=== PATIENT | female | born 1990 | race Caucasian/White ===

== ENCOUNTER 2016-08-06 15:00 | Emergency (ER) | payer SELFPAY ==
[~2016-08-06] VITALS: Ht 170.2 cm; Wt 54.4 kg
--- NOTE | 2016-08-06 15:07 | NUR ---
CALLED RT FOR BREATHING TREATMENT
[2016-08-06] MEDS ORDERED: Magnesium 1GM/D5W 100ML PREMIX 200 ML IV ONE (15:09)
[2016-08-06] MEDS ORDERED: ALBUTEROL FS 2.5 MG/3 ML VIAL.NEB ONE (15:09)
[2016-08-06] MEDS ORDERED: IPRATROPIUM NEB FS 0.5 MG/2.5 ML AMPUL.NEB ONE (15:09)
[2016-08-06] MEDS ORDERED: predniSONE 20 MG TABLET ONE (15:10)
--- NOTE | 2016-08-06 15:10 | NUR ---
PT REUSED IV ACCESS.
[2016-08-06] MEDS ORDERED: IPRATROPIUM NEB FS 0.5 MG/2.5 ML AMPUL.NEB NEB ONE (15:30)
[2016-08-06] MEDS ORDERED: predniSONE 20 MG TABLET PO ONE (15:30)
[2016-08-06] MEDS ORDERED: ALBUTEROL FS 2.5 MG/3 ML VIAL.NEB NEB ONE (15:30)
[2016-08-06] MEDS ORDERED: methylPREDNISolone SOD SUCC 125 MG/2ML VIAL IV ONE (15:30)
--- NOTE | 2016-08-06 16:16 | NUR ---
PT REFUSED XRAY. MADE AWARE.
[2016-08-06 17:01] VITALS: BP 129/83
--- NOTE | 2016-08-06 17:02 | NUR ---
Patient discharged to home in stable condition. Written and verbal after care instructions given. Patient verbalizes understanding of instruction.
== END 2016-08-06 17:03 | disposition home or self-care (01) ==
LOC: ER 15:04
DX: J45.901 Unspecified asthma with (acute) exacerbation (principal)
CPT/HCPCS: 94644; 99285; A4606; J7512; Z7610